=== PATIENT | male | born 1990 | race Caucasian/White ===

== ENCOUNTER 2017-10-21 10:11 | Outpatient (CLI) | payer OTHER | END 2017-10-21 10:29 | disposition home or self-care (01) | LOC: LAB 10:11 | DX: D69.3 Immune thrombocytopenic purpura (principal); E78.3 Hyperchylomicronemia ==

== ENCOUNTER → 2019-11-01 17:44 | Outpatient (CLI) | payer OTHER | END | disposition home or self-care (01) | LOC: LAB 17:44 | DX: J11.1 Influenza due to unidentified influenza virus with other respiratory manifestations (principal); A90 Dengue fever [classical dengue] ==